=== PATIENT | male | born 1955 | race Caucasian/White ===

== ENCOUNTER 2017-02-19 11:47 | Emergency (ER) | payer OTHER ==
[~2017-02-19] VITALS: Ht 182.9 cm; Wt 136.1 kg
[2017-02-19 11:47] VITALS: BP_SYST 152
[2017-02-19] MEDS ORDERED: FLUORESCEIN SODIUM 1 MG OPHTHALMIC STRIP OP ONE (12:00)
[2017-02-19] MEDS ORDERED: PROPARACAINE (OPTHANINE 0.5%) 15 ML DROPS OP ONE (12:00)
[2017-02-19] MEDS ORDERED: HYDROcodone/ACETAMIN 10-325 MG TAB PO ONE (12:45)
[2017-02-19 13:32] VITALS: BP_SYST 141
== END 2017-02-19 13:32 | disposition home or self-care (01) ==
LOC: SED 11:47
DX: S05.8X1A Other injuries of right eye and orbit, initial encounter (principal); Z88.5 Allergy status to narcotic agent; W22.8XXA Striking against or struck by other objects, initial encounter; Y93.89 Activity, other specified; Y92.89 Other specified places as the place of occurrence of the external cause; Y99.8 Other external cause status
CPT/HCPCS: 99284

== ENCOUNTER 2024-06-13 09:37 | Inpatient (IN) | payer OTHER ==
[~2024-06-13] VITALS: Ht 180.3 cm; Wt 142.5 kg
[2024-06-13 09:51] VITALS: BP_SYST 125; PULSE 92; RESP 20; TEMP 97.8; O2SAT 98
[2024-06-13] MEDS: fentaNYL CITRATE/PF 100 MCG/2 ML AMP IM ONE (09:51)
[2024-06-13 10:40] LABS: BASOPHILS # (AUTO) 0.1 K/uL (0.0-0.2); BASOPHILS % (AUTO) 1.1 % (0.0-2.0); EOSINOPHILS # (AUTO) 0.2 K/uL (0.0-0.4); EOSINOPHILS % (AUTO) 2.2 % (0.0-4.0); HEMATOCRIT 38.7 % (36-54); HEMOGLOBIN 12.9 g/dL (14.0-18.0); LYMPHOCYTES # (AUTO) 2.3 K/uL (1.0-5.5); LYMPHOCYTES % (AUTO) 24.1 % (20.5-51.5); MEAN CORPUSCULAR HEMOGLOBIN 34 pg (27-31); MEAN CORPUSCULAR HGB CONC 33 % (32-36); MEAN CORPUSCULAR VOLUME 100 fL (79.0-98.0); MONOCYTES # (AUTO) 0.9 K/uL (0.0-1.0); NEUTROPHILS # (AUTO) 6.2 K/uL (1.8-7.7); NEUTROPHILS % (AUTO) 63.6 % (40.0-70.0); PLATELET COUNT (AUTO) 175 K/uL (130-430); RED BLOOD CELL COUNT(AUTO) 3.85 MIL/uL (4.2-6.2); RED CELL DISTRIBUTION WIDTH 18.1 % (9.0-15.0)
[2024-06-13 10:49] LABS: INR 0.9 (0.80-1.20); PROTHROMBIN TIME 9.9 SECS (9.5-12.5)
[2024-06-13 10:53] LABS: WHITE BLOOD COUNT (AUTO) 9.7 K/uL (4.8-10.8)
[2024-06-13 10:55] LABS: ERYTHROCYTE SEDIMENTATION RATE 29 MM/HR (0-15)
[2024-06-13 10:56] LABS: ALBUMIN 3.6 g/dL (3.4-4.8); CALCIUM 9.1 mg/dL (8.4-11.0); CREATININE 1.13 mg/dL (0.55-1.30); POTASSIUM 4.1 mmol/L (3.5-5.1); TOTAL BILIRUBIN 0.8 mg/dL (0.0-1.0); TOTAL PROTEIN, SERUM 7.2 g/dL (6.4-8.3)
[2024-06-13 11:19] LABS: BILIRUBIN,DIRECT 0.2 mg/dL (0.0-0.3); URIC ACID 6.5 mg/dL (2.4-7.0)
[2024-06-13 11:23] LABS: HYPOCHROMASIA 1+
[2024-06-13 11:24] LABS: ROULEAU 1+; TEAR DROP CELLS RARE
[2024-06-13] MEDS ORDERED: ONDANSETRON HCL 4 MG/2 ML VIAL IVP PRN (12:00)
[2024-06-13] MEDS ORDERED: ACETAMINOPHEN 500 MG TABLET PO PRN (12:00)
[2024-06-13] MEDS ORDERED: KETOROLAC TROMETHAMINE 15 MG VIAL IVP PRN (12:00)
[2024-06-13] MEDS ORDERED: MORPHINE 4 MG INJ. 4 MG/ML VIAL IVP PRN (12:00)
[2024-06-13] MEDS ORDERED: METF-1069 PO (12:35)
[2024-06-13] MEDS ORDERED: GABA300T28 PO (12:35)
[2024-06-13] MEDS ORDERED: FENO160T37 PO (12:35)
[2024-06-13] MEDS ORDERED: NALOXONE HCL 0.4 MG/ML AMP (NARCAN) IVP PRN (13:45)
[2024-06-13] MEDS: NICOTINE 21 MG/24 HR PATCH.TD24 TD SCH (15:11)
[2024-06-13] MEDS: KETOROLAC TROMETHAMINE 30 MG VIAL IVP ONE (15:12)
[2024-06-13] MEDS: fentaNYL CITRATE/PF 100 MCG/2 ML AMP IVP ONE (15:14)
[2024-06-13] MEDS ORDERED: DEXTROSE 50% JECT 50 ML DISP.SYRIN IVP PRN (18:30)
[2024-06-13] MEDS ORDERED: INSULIN REGULAR, HUMAN 100 UNITS/ML, 3 ML VIAL (humuLIN R) SUBCUT PRN (18:30)
[2024-06-13] MEDS ORDERED: TEMAZEPAM 15 MG CAPSULE PO PRN (19:15)
[2024-06-13 19:30] VITALS: BP_SYST 132; PULSE 87; RESP 20; TEMP 99
[2024-06-13 20:10] VITALS: BP_SYST 132; PULSE 87; RESP 20; TEMP 99; O2SAT 96
[2024-06-13 20:22] LABS: BILIRUBIN,URINE NEGATIVE (NEGATIVE); BLOOD, URINE NEGATIVE (NEGATIVE); CLARITY/URINE CLEAR (CLEAR); COLOR,URINE YELLOW (YELLOW); GLUCOSE,URINE NEGATIVE (NEGATIVE); KETONES,URINE NEGATIVE (NEGATIVE); LEUKOCYTE ESTERASE ,URINE NEGATIVE (NEGATIVE); NITRITE, URINE NEGATIVE (NEGATIVE); PH,URINE 5.5 (5.0-8.0); PROTEIN URINE 2+ (NEGATIVE); UROBILINOGEN,URINE 0.2 (0.2-1.0)
[2024-06-13 20:43] LABS: BACTERIA,URINE RARE /HPF (None Seen); HYALINE CASTS, URINE 0-10 /LPF (None Seen); MUCUS,URINE 1+ /LPF (None Seen); RBC,URINE NONE SEEN /HPF (0-3); WBC,URINE 0-3 /HPF (0-3)
[2024-06-13] MEDS: COLCHICINE 0.6 MG TABLET PO SCH (21:07)
[2024-06-13] MEDS: ENOXAPARIN SODIUM 40 MG/0.4 ML SYRINGE SUBCUT SCH (21:07)
[2024-06-13] MEDS: HYDROmorphone 1 MG/ML INJ. CARTRIDGE IVP PRN (21:26)
[2024-06-13] MEDS ORDERED: AMPICILLIN SODIUM/SULBACTAM NA 3 GM VIAL ONE (23:49)
[2024-06-14 00:54] VITALS: BP_SYST 138; PULSE 88; RESP 19; TEMP 98.8; O2SAT 91
[2024-06-14] MEDS: AMPICILLIN SODIUM/SULBACTAM NA 3 GM in NS 100 ML IV SCH ×2 (00:59→06:41)
[2024-06-14] MEDS: AMPICILLIN SODIUM/SULBACTAM NA 3 GM VIAL ONE (01:28)
[2024-06-14 06:51] LABS: BASOPHILS # (AUTO) 0.1 K/uL (0.0-0.2); EOSINOPHILS # (AUTO) 0.2 K/uL (0.0-0.4); EOSINOPHILS % (AUTO) 2.8 % (0.0-4.0); HEMATOCRIT 35.9 % (36-54); HEMOGLOBIN 12.2 g/dL (14.0-18.0); LYMPHOCYTES # (AUTO) 2.4 K/uL (1.0-5.5); MEAN CORPUSCULAR HEMOGLOBIN 34 pg (27-31); MEAN CORPUSCULAR HGB CONC 34 % (32-36); MEAN CORPUSCULAR VOLUME 100 fL (79.0-98.0); MONOCYTES # (AUTO) 0.8 K/uL (0.0-1.0); MONOCYTES % (AUTO) 9.1 % (1.7-9.3); NEUTROPHILS # (AUTO) 5.1 K/uL (1.8-7.7); NEUTROPHILS % (AUTO) 59.1 % (40.0-70.0); PLATELET COUNT (AUTO) 164 K/uL (130-430); RED CELL DISTRIBUTION WIDTH 18.5 % (9.0-15.0); WHITE BLOOD COUNT (AUTO) 8.6 K/uL (4.8-10.8)
[2024-06-14 07:11] LABS: HEMOGLOBIN A1C 6.61 % (<5.7)
[2024-06-14 08:00] VITALS: BP_SYST 127; PULSE 88; RESP 14; TEMP 98.4; O2SAT 96
[2024-06-14 08:01] LABS: ALBUMIN 3.3 g/dL (3.4-4.8); CALCIUM 8.6 mg/dL (8.4-11.0); CREATININE 1.02 mg/dL (0.55-1.30); FREE T4 (FREE THYROXINE) 0.7 ng/dL (0.6-1.6); POTASSIUM 3.9 mmol/L (3.5-5.1); THYROID STIMULATING HORMONE 2.79 uIu/mL (0.34-4.82); TOTAL BILIRUBIN 0.8 mg/dL (0.0-1.0); TOTAL PROTEIN, SERUM 6.8 g/dL (6.4-8.3)
[2024-06-14 08:10] VITALS: O2SAT 96
[2024-06-14] MEDS: FENOFIBRATE 160 MG TABLET PO SCH (09:04)
[2024-06-14 12:30] VITALS: BP_SYST 128; PULSE 82; RESP 20; TEMP 98.1; O2SAT 92
[2024-06-14] MEDS: GABAPENTIN 300 MG CAPSULE PO SCH (15:00)
[2024-06-14 16:10] VITALS: BP_SYST 130; PULSE 90; RESP 19; TEMP 98.4; O2SAT 96
[2024-06-14] MEDS ORDERED: BISACODYL 5 MG TABLET.DR (DULCOLAX) PO PRN (18:00)
[2024-06-14] MEDS: COLCHICINE 0.6 MG TABLET PO ONE (18:28)
[2024-06-14] MEDS: NEOMY SULF/BACITRAC ZN/POLY 28 GM OINT..GM. TP ONE (18:28)
[2024-06-14 20:00] VITALS: BP_SYST 104; PULSE 75; RESP 16; TEMP 97.9; O2SAT 97
[2024-06-14] MEDS: COLCHICINE 0.6 MG TABLET PO SCH (21:21)
[2024-06-14] MEDS: DOCUSATE SODIUM 250 MG CAPSULE PO SCH (21:21)
[2024-06-14] MEDS: INSULIN REGULAR, HUMAN 100 UNITS/ML, 3 ML VIAL (humuLIN R) SUBCUT PRN (21:28)
[2024-06-15] MEDS: KETOROLAC TROMETHAMINE 15 MG VIAL IVP PRN (01:00)
[2024-06-15 01:32] VITALS: BP_SYST 120; PULSE 78; RESP 17; TEMP 97.6; O2SAT 95
[2024-06-15 06:40] LABS: ERYTHROCYTE SEDIMENTATION RATE 48 MM/HR (0-15)
[2024-06-15 06:44] LABS: ALBUMIN 3.3 g/dL (3.4-4.8); BASOPHILS # (AUTO) 0.1 K/uL (0.0-0.2); BASOPHILS % (AUTO) 1.3 % (0.0-2.0); CALCIUM 8.9 mg/dL (8.4-11.0); CREATININE 1.11 mg/dL (0.55-1.30); EOSINOPHILS # (AUTO) 0.3 K/uL (0.0-0.4); EOSINOPHILS % (AUTO) 4.3 % (0.0-4.0); HEMATOCRIT 37.3 % (36-54); HEMOGLOBIN 12.6 g/dL (14.0-18.0); LYMPHOCYTES # (AUTO) 2.8 K/uL (1.0-5.5); LYMPHOCYTES % (AUTO) 41.9 % (20.5-51.5); MEAN CORPUSCULAR HEMOGLOBIN 34 pg (27-31); MEAN CORPUSCULAR HGB CONC 34 % (32-36); MEAN CORPUSCULAR VOLUME 100 fL (79.0-98.0); MONOCYTES # (AUTO) 0.6 K/uL (0.0-1.0); MONOCYTES % (AUTO) 8.4 % (1.7-9.3); NEUTROPHILS % (AUTO) 44.1 % (40.0-70.0); PLATELET COUNT (AUTO) 199 K/uL (130-430); POTASSIUM 4.7 mmol/L (3.5-5.1); RED BLOOD CELL COUNT(AUTO) 3.72 MIL/uL (4.2-6.2); RED CELL DISTRIBUTION WIDTH 18.1 % (9.0-15.0); TOTAL BILIRUBIN 0.5 mg/dL (0.0-1.0); WHITE BLOOD COUNT (AUTO) 6.8 K/uL (4.8-10.8)
[2024-06-15] MEDS ORDERED: METF-379 PO (07:24)
[2024-06-15 08:00] VITALS: BP_SYST 117; PULSE 77; RESP 16; TEMP 98.3
[2024-06-15] MEDS: NEOMY SULF/BACITRAC ZN/POLY 28 GM OINT..GM. TP SCH (10:15)
[2024-06-15 11:01] VITALS: BP_SYST 111; PULSE 73; RESP 16; TEMP 98.4; O2SAT 90
[2024-06-15] MEDS: ONDANSETRON HCL 4 MG/2 ML VIAL ONE (12:16)
[2024-06-15] MEDS ORDERED: ALPRAZolam 0.25 MG TABLET PO PRN (16:15)
[2024-06-15 17:20] VITALS: BP_SYST 118; PULSE 73; RESP 17; TEMP 97.4; O2SAT 93
[2024-06-15 20:00] VITALS: BP_SYST 99; PULSE 81; RESP 18; TEMP 98; O2SAT 81; O2SAT 92
[2024-06-16 00:40] VITALS: BP_SYST 117; PULSE 85; RESP 12; TEMP 97.7; O2SAT 84
[2024-06-16 06:16] LABS: BASOPHILS % (AUTO) 0.2 % (0.0-2.0); EOSINOPHILS # (AUTO) 0.3 K/uL (0.0-0.4); EOSINOPHILS % (AUTO) 4.7 % (0.0-4.0); HEMATOCRIT 38.6 % (36-54); HEMOGLOBIN 12.8 g/dL (14.0-18.0); LYMPHOCYTES # (AUTO) 2.4 K/uL (1.0-5.5); LYMPHOCYTES % (AUTO) 40.8 % (20.5-51.5); MEAN CORPUSCULAR HEMOGLOBIN 33 pg (27-31); MEAN CORPUSCULAR HGB CONC 33 % (32-36); MEAN CORPUSCULAR VOLUME 100 fL (79.0-98.0); MONOCYTES # (AUTO) 0.4 K/uL (0.0-1.0); MONOCYTES % (AUTO) 7.7 % (1.7-9.3); NEUTROPHILS # (AUTO) 2.7 K/uL (1.8-7.7); NEUTROPHILS % (AUTO) 46.6 % (40.0-70.0); PLATELET COUNT (AUTO) 228 K/uL (130-430); RED BLOOD CELL COUNT(AUTO) 3.84 MIL/uL (4.2-6.2); RED CELL DISTRIBUTION WIDTH 18.5 % (9.0-15.0); WHITE BLOOD COUNT (AUTO) 5.8 K/uL (4.8-10.8)
[2024-06-16 07:01] LABS: CALCIUM 9.3 mg/dL (8.4-11.0); CREATININE 1.09 mg/dL (0.55-1.30); POTASSIUM 4.6 mmol/L (3.5-5.1)
[2024-06-16 08:00] VITALS: BP_SYST 105; PULSE 75; RESP 16; TEMP 98.3; O2SAT 96
[2024-06-16 11:21] VITALS: BP_SYST 117; PULSE 75; RESP 20; TEMP 98; O2SAT 93
[2024-06-16 16:09] VITALS: BP_SYST 128; PULSE 68; RESP 20; TEMP 98.2; O2SAT 94
[2024-06-16 20:00] VITALS: BP_SYST 138; PULSE 79; RESP 18; TEMP 98.7; O2SAT 79; O2SAT 90
[2024-06-16] MEDS: DOXYCYCLINE HYCLATE 100 MG in D5W 100 ML IV SCH (21:06)
[2024-06-17 00:41] VITALS: BP_SYST 140; PULSE 79; RESP 18; TEMP 98; O2SAT 94
[2024-06-17 07:01] LABS: BASOPHILS % (AUTO) 0.1 % (0.0-2.0); EOSINOPHILS # (AUTO) 0.3 K/uL (0.0-0.4); EOSINOPHILS % (AUTO) 4.7 % (0.0-4.0); HEMATOCRIT 37.5 % (36-54); HEMOGLOBIN 12.8 g/dL (14.0-18.0); LYMPHOCYTES # (AUTO) 2.9 K/uL (1.0-5.5); LYMPHOCYTES % (AUTO) 43.5 % (20.5-51.5); MEAN CORPUSCULAR HEMOGLOBIN 34 pg (27-31); MEAN CORPUSCULAR HGB CONC 34 % (32-36); MEAN CORPUSCULAR VOLUME 99 fL (79.0-98.0); MONOCYTES # (AUTO) 0.5 K/uL (0.0-1.0); MONOCYTES % (AUTO) 7.4 % (1.7-9.3); NEUTROPHILS % (AUTO) 44.3 % (40.0-70.0); PLATELET COUNT (AUTO) 260 K/uL (130-430); RED BLOOD CELL COUNT(AUTO) 3.78 MIL/uL (4.2-6.2); RED CELL DISTRIBUTION WIDTH 18.1 % (9.0-15.0); WHITE BLOOD COUNT (AUTO) 6.7 K/uL (4.8-10.8)
[2024-06-17 07:24] LABS: ALBUMIN 3.4 g/dL (3.4-4.8); CALCIUM 9.3 mg/dL (8.4-11.0); CREATININE 1.15 mg/dL (0.55-1.30); POTASSIUM 4.4 mmol/L (3.5-5.1); TOTAL BILIRUBIN 0.4 mg/dL (0.0-1.0); TOTAL PROTEIN, SERUM 7.2 g/dL (6.4-8.3)
[2024-06-17 08:00] VITALS: BP_SYST 115; PULSE 72; RESP 16; TEMP 98.3; O2SAT 96
[2024-06-17 12:32] VITALS: BP_SYST 141; PULSE 67; RESP 20; TEMP 98; O2SAT 94
[2024-06-17 16:29] VITALS: BP_SYST 139; PULSE 82; RESP 20; TEMP 97; O2SAT 93
[2024-06-17] MEDS ORDERED: COLC0.6T67 PO (16:36)
[2024-06-17] MEDS ORDERED: DOXY-244 PO (16:36)
[2024-06-17 16:59] VITALS: BP_SYST 128; PULSE 72; RESP 16; TEMP 98.3; O2SAT 94
== END 2024-06-17 17:00 | disposition home or self-care (01) | DRG 603 ==
LOC: SED 09:37 → UNDOADMIN 11:49 → SMU 11:49
PROVIDERS: ADMIT Internal Medicine; ATTEND Internal Medicine
DX: L03.115 Cellulitis of right lower limb (principal); Z68.41 Body mass index [BMI] 40.0-44.9, adult; M10.9 Gout, unspecified; E11.9 Type 2 diabetes mellitus without complications; I10 Essential (primary) hypertension; E66.9 Obesity, unspecified; E78.5 Hyperlipidemia, unspecified; J44.9 Chronic obstructive pulmonary disease, unspecified; Z88.5 Allergy status to narcotic agent; Z79.899 Other long term (current) drug therapy
CPT/HCPCS: 36415; 73721; 80048; 80053; 80061; 80076; 81000; 81001; 81015; 82948; 83037; 83605; 83880; 84439; 84443; 84550; 85025; 85610; 85651; 85730; 87040; 87081; 93005; 93306; 93971; 96372; 96374; 99285; J0295; J1170; J1650; J1815; J1885; J2405; J3010; J3490; J7060